=== PATIENT | female | born 1995 | race American Indian/Alaskan Native ===

== ENCOUNTER 2018-12-04 13:50 | Emergency (ER) | payer SELFPAY ==
--- NOTE | 2018-12-04 14:05 | Emergency Department Report ---
Blank Doc - Documentation Documentation: This is a 23-year-old female that presents with vaginal bleeding. Stated has pelvic pain as cramping. This initial assessment/diagnostic orders/clinical plan/treatment(s) is/are subject to change based on patient's health status, clinical progression and re- assessment by fellow clinical providers in the ED. Further treatment and workup at subsequent clinical providers discretion. Patient/guardians urged not to elope from the ED as their condition may be serious if not clinically assessed and managed. Initial orders include: 1- Patient sent to [facility] for further evaluation and treatment 2- UA 3- labs
[2018-12-04 14:07] VITALS: BP 117/69
== END 2018-12-04 14:27 | disposition left against medical advice (07) ==
LOC: ED 13:50
DX: N93.9 Abnormal uterine and vaginal bleeding, unspecified (principal); Z53.21 Procedure and treatment not carried out due to patient leaving prior to being seen by health care provider

== ENCOUNTER 2019-06-01 22:13 | Emergency (ER) | payer SELFPAY ==
[2019-06-02] MEDS ORDERED: ONDANSETRON 4 MG ODT TAB PO ONE (03:24)
[2019-06-02] MEDS ORDERED: KETOROLAC 30 MG/1 ML INJ IM ONE (03:24)
[2019-06-02] MEDS ORDERED: LIDOCAINE-MPF (1%) 10 MG/1 ML VIAL 5 ML INFILTRATI ONE (03:24)
[2019-06-02] MEDS ORDERED: oxyCODONE /ACETAMINOPHEN 5-325MG TAB PO ONE (03:24)
[2019-06-02] MEDS ORDERED: SULFAMETHOXAZOLE/TRIMETHOPRIM 800/160MG DS TAB PO ONE (03:24)
--- NOTE | 2019-06-02 06:15 | Emergency Department Report ---
ED General Adult HPI - General Chief complaint: Rectal Pain Stated complaint: HEMORRHOIDS Source: patient Mode of arrival: Ambulatory Limitations: No Limitations - History of Present Illness Initial comments: Patient is a 24-year-old -[place]is[place] female with a history of anxiety and depression who presents to the ED with complaint of acute onset persistent severe painful swollen erythematous maculopapular rash with fluctuance on the right gluteal cleft for the last 1 week. Patient states that the pain and the swelling got worse in the last 3 days such that she has not been able to sit down or lay down because of severe pain. Patient denies fever, chills, nausea, vomiting, dizziness, headache, chest pain, abdominal pain, traumatic injury or change in vision, numbness and tingling or weakness of lower extremities bilaterally, subtle paresthesia or urinary and bowel incontinence. MD Complaint: Gluteal cleft rash with severe pain and swelling -: Sudden, week(s) (1) Location: buttocks Radiation: non-radiation Severity scale (0 -10): 8 Quality: aching, sharp, constant Consistency: constant Improves with: none Worsens with: movement Associated Symptoms: denies other symptoms, rash (swollen erythematous maculopapular rash with fluctuance on right gluteal cleft). denies: confusion, chest pain, cough, diaphoresis, fever/chills, headaches, loss of appetite, malaise, nausea/vomiting, seizure, shortness of breath, syncope, weakness Treatments Prior to Arrival: none - Related Data Previous Rx's Medication Instructions Recorded Last Taken Type Acetaminophen/Codeine [Tylenol 1 tab PO Q6H PRN #12 tab 06/02/19 Unknown Rx /Codeine # 3 tab] Clindamycin [Clindamycin CAP] 300 mg PO Q8HR #60 capsule 06/02/19 Unknown Rx Ibuprofen [Motrin] 800 mg PO Q8HR PRN #24 tablet 06/02/19 Unknown Rx Ondansetron [Zofran Odt] 4 mg PO Q6HR PRN #15 tab.rapdis 06/02/19 Unknown Rx Sulfamethoxazole/Trimethoprim 1 each PO Q12H #20 tablet 06/02/19 Unknown Rx [Bactrim DS TAB] Allergies Allergy/AdvReac Type Severity Reaction Status Date / Time No Known Allergies Allergy Unverified 12/04/18 13:52 ED Review of Systems ROS: Stated complaint: HEMORRHOIDS Other details as noted in HPI Constitutional: denies: chills, fever Eyes: denies: eye pain, eye discharge, vision change ENT: denies: ear pain, throat pain Respiratory: denies: cough, shortness of breath, wheezing Cardiovascular: denies: chest pain, palpitations Endocrine: no symptoms reported Gastrointestinal: denies: abdominal pain, nausea, diarrhea Genitourinary: denies: urgency, dysuria, discharge Musculoskeletal: denies: back pain, joint swelling, arthralgia Skin: rash, change in color (erythematous swollen fluctuant painful rash on right great gluteal cleft). denies: lesions Neurological: denies: headache, weakness, paresthesias Psychiatric: denies: anxiety, depression Hematological/Lymphatic: denies: easy bleeding, easy bruising ED Past Medical Hx - Social History Smoking Status: Current Every Day Smoker Substance Use Type: None - Medications Home Medications: Home Medications Medication Instructions Recorded Confirmed Last Taken Type Acetaminophen/Codeine [Tylenol 1 tab PO Q6H PRN #12 tab 06/02/19 Unknown Rx /Codeine # 3 tab] Clindamycin [Clindamycin CAP] 300 mg PO Q8HR #60 capsule 06/02/19 Unknown Rx Ibuprofen [Motrin] 800 mg PO Q8HR PRN #24 tablet 06/02/19 Unknown Rx Ondansetron [Zofran Odt] 4 mg PO Q6HR PRN #15 tab.rapdis 06/02/19 Unknown Rx Sulfamethoxazole/Trimethoprim 1 each PO Q12H #20 tablet 06/02/19 Unknown Rx [Bactrim DS TAB] ED Physical Exam - General Limitations: No Limitations General appearance: alert, in no apparent distress - Head Head exam: Present: atraumatic, normocephalic, normal inspection - Eye Eye exam: Present: normal appearance, PERRL, EOMI Pupils: Present: normal accommodation - ENT ENT exam: Present: normal exam, normal orophraynx, mucous membranes moist, TM's normal bilaterally, normal external ear exam - Neck Neck exam: Present: normal inspection, full ROM - Respiratory Respiratory exam: Present: normal lung sounds bilaterally. Absent: respiratory distress, wheezes, rales, rhonchi, stridor, chest wall tenderness, accessory muscle use, decreased breath sounds, prolonged expiratory - Cardiovascular Cardiovascular Exam: Present: normal rhythm, tachycardia, normal heart sounds. Absent: systolic murmur, diastolic murmur, rubs, gallop - GI/Abdominal GI/Abdominal exam: Present: soft, normal bowel sounds. Absent: tenderness, guarding, hyperactive bowel sounds, hypoactive bowel sounds, organomegaly - Rectal Rectal exam: Present: tenderness (palpable severe tenderness of right gluteal cleft due to erythematous swollen fluctuant rash), other (Female clinical law professor present, Ms Lyn during the physical exam and procedure) - Extremities Exam Extremities exam: Present: normal inspection, full ROM, normal capillary refill - Back Exam Back exam: Present: normal inspection, full ROM. Absent: muscle spasm, paraspinal tenderness - Neurological Exam Neurological exam: Present: alert, oriented X3, CN II-XII intact, normal gait, reflexes normal - Psychiatric Psychiatric exam: Present: normal affect, normal mood - Skin Skin exam: Present: warm, dry, intact, normal color, rash (Swollen erythematous severely tender right gluteal rash with fluctuance), erythema, vesicles ED Course Vital Signs 06/01/19 06/02/19 22:23 06:29 Temperature 97.9 F Pulse Rate 138 H 83 Respiratory 18 16 Rate Blood Pressure 119/87 Blood Pressure 112/64 [Left] O2 Sat by Pulse 97 97 Oximetry - I & D Right Buttocks Type of Procedure: Simple Site: right gluteal cleft Blade Size: 11 I & D Procedure: betadine prep, sterile drapes applied, sterile dressing applied Progress: The wound was incised and drained after application of local anesthetic lidocaine 1% solution. The wound was debrided thoroughly cleaned. Copious amounts of normal saline solution. The wound was then packed with Iodoform gauze and dressed with 4 x 4 gauzes and Tegaderm tape. Patient tolerated procedure well and was discharged home on pain medications and oral antibiotics. Patient is advised to return to the ED in 2 days for wound recheck and packing removal. Patient was also advised to follow-up with her primary care physician in 7-10 days for reevaluation. ED Medical Decision Making - Medical Decision Making This is a 24-year-old female who presented to the ED with painful swollen erythematous maculopapular fluctuant rash on right gluteal cleft over one week. In the ED, patient is alert and oriented 3, anxious, tachycardic and appears to be in pain but in no acute distress. Patient was treated for pain in the ED and also given initial oral antibiotics. The swollen fluctuant rash was cleaned thoroughly and the local area anesthetized with lidocaine 1% solution. The rash was then incised and drained, debrided and iodoform packing applied. The wound was then dressed appropriately with 4 x 4 gauzes and Tegaderm. Patient tolerated procedure well. Patient was advised to return to the ED in 2 days for wound recheck and packing removal. Patient was also advised to return to the ED immediately if symptoms get worse, otherwise follow-up with primary care physician in 7-10 days for reevaluation. Prior to being discharged, her vital signs were rechecked the tachycardia significantly improved. - Differential Diagnosis cellulitis; cutaneous abscess; acute folliculitis Critical care attestation.: If time is entered above; I have spent that time in minutes in the direct care of this critically ill patient, excluding procedure time. ED Disposition Clinical Impression: Cutaneous abscess of buttock, Cellulitis of right buttock, Acute folliculitis Disposition: TO HOME OR SELFCARE Is pt being admited?: No Does the pt Need Aspirin: No Condition: Stable Instructions: Cellulitis (ED), Abscess (ED) Additional Instructions: Take medications with food, drink plenty of fluids and follow-up with the [place] care physician in 7-10 days for reevaluation. Return to the ED immediately if symptoms get worse. Otherwise return to the ED in 2 days for wound recheck and packing removal. Prescriptions: Sulfamethoxazole/Trimethoprim [Bactrim DS TAB] 1 each PO Q12H #20 tablet Clindamycin [Clindamycin CAP] 300 mg PO Q8HR #60 capsule Ibuprofen [Motrin] 800 mg PO Q8HR PRN #24 tablet PRN Reason: Pain , Severe (7-10) Acetaminophen/Codeine [Tylenol /Codeine # 3 tab] 1 tab PO Q6H PRN #12 tab PRN Reason: Pain , Severe (7-10) Ondansetron [Zofran Odt] 4 mg PO Q6HR PRN #15 tab.rapdis PRN Reason: Nausea Referrals: JUDI DELUNA MD [Primary Care Provider] - 3-5 Days Time of Disposition: 06:24 Print Language: PORTUGUESE
[2019-06-02 06:30] VITALS: BP 112/64
== END 2019-06-02 06:44 | disposition home or self-care (01) ==
LOC: ED 22:13
DX: L02.31 Cutaneous abscess of buttock (principal); L03.317 Cellulitis of buttock; L73.9 Follicular disorder, unspecified; F17.200 Nicotine dependence, unspecified, uncomplicated; Z79.899 Other long term (current) drug therapy
CPT/HCPCS: 10060; 96372; 99282; J1885; Q0162

== ENCOUNTER 2019-06-03 12:44 | Emergency (ER) | payer SELFPAY ==
[2019-06-03 13:13] VITALS: BP 126/72
--- NOTE | 2019-06-03 13:14 | Event Note ---
ED Screening Note Date of service: 06/03/19 Time: 13:13 ED Screening Note: Pt presents for recheck of abscess abscess drained here in ED 2 days ago per pt states pain is an 03/03 reports she has not started taking the prescribed antibiotics denies fever/chills/sweats This initial assessment/diagnostic orders/clinical plan/treatment(s) is/are subject to change based on patients health status, clinical progression and re- assessment by fellow clinical providers in the ED. Further treatment and workup at subsequent clinical providers discretion. Patient/guardian urged not to elope from the ED as their condition may be serious if not clinically assessed and managed. Initial orders include:
--- NOTE | 2019-06-03 13:46 | Emergency Department Report ---
Suture/Staple Removal - [facility] Chief Complaint: Recheck/Abnormal Lab/Rx Stated Complaint: FOLLOW UP Time Seen by Provider: 06/03/19 12:55 When Sutures or Roxanne Placed: 2 days Wound Location: right gluteal cleft area ED Review of Systems ROS: Stated complaint: FOLLOW UP Other details as noted in HPI Constitutional: denies: chills, fever Eyes: denies: eye pain, eye discharge, vision change ENT: denies: ear pain, throat pain Respiratory: denies: cough, shortness of breath, wheezing Cardiovascular: denies: chest pain, palpitations Endocrine: no symptoms reported Gastrointestinal: denies: abdominal pain, nausea, diarrhea Genitourinary: denies: urgency, dysuria, discharge Musculoskeletal: denies: back pain, joint swelling, arthralgia Skin: denies: rash, lesions Neurological: denies: headache, weakness, paresthesias Psychiatric: denies: anxiety, depression Hematological/Lymphatic: denies: easy bleeding, easy bruising ED Past Medical Hx - Past Medical History Previous Medical History?: No - Surgical History Past Surgical History?: No - Social History Smoking Status: Current Every Day Smoker Substance Use Type: None - Medications Home Medications: Home Medications Medication Instructions Recorded Confirmed Last Taken Type Acetaminophen/Codeine [Tylenol 1 tab PO Q6H PRN #12 tab 06/02/19 Unknown Rx /Codeine # 3 tab] Clindamycin [Clindamycin CAP] 300 mg PO Q8HR #60 capsule 06/02/19 Unknown Rx Ibuprofen [Motrin] 800 mg PO Q8HR PRN #24 tablet 06/02/19 Unknown Rx Ondansetron [Zofran Odt] 4 mg PO Q6HR PRN #15 tab.rapdis 06/02/19 Unknown Rx Sulfamethoxazole/Trimethoprim 1 each PO Q12H #20 tablet 06/02/19 Unknown Rx [Bactrim DS TAB] Suture Removal Exam - Exam General: Vital signs noted. No distress. Alert and acting appropriately. Wound: No Pathologic Erythema, No Tenderness, No Drainage, No Pus, No Wound Dehiscence Other Systems: All other systems reviewed and are unremarkable. ED Course Vital Signs 06/03/19 12:47 Temperature 98.1 F Pulse Rate 104 H Respiratory 18 Rate Blood Pressure 126/72 O2 Sat by Pulse 96 Oximetry - Reevaluation(s) Reevaluation #1: 06/03/19 13:47 Patient is speaking in full sentences with no signs of distress noted. ED Recheck MDM - Medical Decision Making This is a 24-year-old female that presents with abscess packing removal. She is stable and was examined by me. I hear from packing has been removed and patient tolerated well. Patient stated she did not start taking antibiotics but she is going after discharged to get them. I educated and instructed the patient of the importance of taking antibiotics and she stated she will start taking them. No signs of cellulitis. Patient was referred to Follow-up with a primary care doctor in 3-5 days or if symptoms worsen and continue return to emergency room as soon as possible. At time of discharge, the patient does not seem toxic or ill in appearance. No acute signs of distress noted. Patient agrees to discharge treatment plan of care. No further questions noted by the patient. Critical care attestation.: If time is entered above; I have spent that time in minutes in the direct care of this critically ill patient, excluding procedure time. ED Disposition Clinical Impression: Abscess packing removal Disposition: [id number] TO HOME OR SELFCARE Is pt being admited?: No Does the pt Need Aspirin: No Condition: Stable Instructions: Acute Wound Care (ED) Additional Instructions: Follow-up with a primary care doctor in 3-5 days or if symptoms worsen and continue return to emergency room as soon as possible. As instructed and educated during her visit here in the emergency room it is crucial that you start taking antibiotics today. Referrals: PRIMARY CAREMD [Referring] - 3-5 Days MANUEL LOWE MD [Staff Physician] - 3-5 Days [facility] [Outside] - 3-5 Days [facility] [Outside] - 3-5 Days
== END 2019-06-03 14:12 | disposition home or self-care (01) ==
LOC: ED 12:44
DX: Z48.00 Encounter for change or removal of nonsurgical wound dressing (principal); F17.200 Nicotine dependence, unspecified, uncomplicated